=== PATIENT | female | born 1995 | race Two or more races ===

== ENCOUNTER → 2020-08-14 | Outpatient (CLI) | payer OTHER | END | disposition home or self-care (01) | LOC: LAB 16:35 | PROVIDERS: ATTEND Nurse Practitioner Family | DX: Z20.828 Contact with and (suspected) exposure to other viral communicable diseases (principal) | CPT/HCPCS: C9803; U0003 ==

== ENCOUNTER 2021-08-21 23:54 | Emergency (ER) | payer BC, OTHER ==
[~2021-08-21] VITALS: Ht 172.7 cm; Wt 90.7 kg
[2021-08-22] MEDS ORDERED: ACCU-CHEK COMFORT CURVE STRIP VI ONE (00:15)
[2021-08-22] MEDS ORDERED: ONDANSETRON ODT 4 MG TAB PO ONE (00:45)
[2021-08-22 00:55] LABS: Nucleated Red Blood Cells % 0.1 %; Red Blood Cells 4.66 10^6/uL (4.0-5.20); White Blood Cell 10.8 10^3/uL (4.4-10.8)
[2021-08-22 00:57] LABS: Basophils # (auto) 0 10 ^3/uL (0-0.2); Basophils % (auto) 0.3 % (0.0-2.0); Eosinophils # (auto) 0.3 10 ^3/uL (0-0.8); Eosinophils % (auto) 2.7 % (0.0-7.0); Hemoglobin 12.1 g/dL (12.2-16.2); Lymphocytes # (auto) 3.5 10 ^3/uL (0.4-5.4); Lymphocytes % (auto) 32.1 % (10.0-50.0); Mean Corpuscular Hemoglobin 25.9 pg (28.0-32.0); Mean Corpuscular Hgb Conc. 32.6 g/dL (32.0-36.0); Mean Corpuscular Volume 79.4 fL (80.0-100.0); Monocytes # (auto) 0.6 10 ^3/uL (0-1.3); Monocytes % (auto) 5.2 % (0.0-12.0); Neutrophils # (auto) 6.4 10 ^3/uL (1.6-8.6); Neutrophils % (auto) 59.7 % (37.0-80.0); Red Cell Distribution Width 16.6 % (11.8-14.3)
[2021-08-22 01:13] LABS: Albumin 3.6 g/dL (3.4-5.0); Calcium 8.5 mg/dL (8.5-10.1); Potassium 3.5 mmol/L (3.5-5.1)
[2021-08-22 01:15] LABS: BUN/Creatinine Ratio 14.9
[2021-08-22 01:17] LABS: Urine Bacteria FEW /hpf (None Seen); Urine Blood Negative /uL (Negative); Urine Mucus FEW (None Seen); Urine Specific Gravity 1.018 (1.001-1.035); Urine WBC 6 /hpf (0 - 5)
[2021-08-22 01:18] LABS: Bilirubin, Total 0.4 mg/dL (0.2-1.0); Total Protein 7.3 g/dL (6.4-8.2)
[2021-08-22] MEDS ORDERED: CEPHALEXIN 250 MG CAP PO ONE (03:45)
[2021-08-22 03:50] VITALS: BP 110/69
== END 2021-08-22 03:58 | disposition home or self-care (01) ==
LOC: ER 23:54 → EEVIPCON 23:54 → ER 08-22 03:58
DX: N39.0 Urinary tract infection, site not specified (principal)
CPT/HCPCS: 36415; 80053; 81001; 83605; 84484; 84702; 85025; 87426; 93005; 99284; Q0162